=== PATIENT | male | born 1995 | race Caucasian/White ===

== ENCOUNTER → 2021-06-04 17:51 | Outpatient (BNVA) | payer OTHER, SELFPAY | PROVIDERS: Visit Provider Registered Nurse Neonatal Intensive Care | DX: Z20.2 Contact with and (suspected) exposure to infections with a predominantly sexual mode of transmission (principal) | CPT/HCPCS: 87491; 87591 ==

== ENCOUNTER 2021-10-01 20:35 | Emergency (ER) | payer SELFPAY ==
--- NOTE | 2021-10-01 20:37 | ECG_ITS ---
[facility] Test Date: 2021-10-01 Pat Name: Alfie Hutton Department: Room: Gender: Male Terminal Computer Operator: : 1995 Requested By: Ej Guerra Order Number: [id number] Mey MD: Salomón Redding M.D. Measurements Intervals Jay Rate: 106 P: 76 AK: 138 QRS: 82 QRSD: 98 T: 40 QT: 299 QTc: 398 Interpretive Statements SINUS TACHYCARDIA ABNORMAL RHYTHM ECG No previous ECG available for comparison Electronically Signed On 10-01-2021 22:48:25 CELL ATTENDANT by Salomón Redding M.D. [id number] f
[2021-10-01 20:40] VITALS: BP 147/87; PULSE 104; RESP 18; TEMP 36.2; O2SAT 98; BMI 25.0
--- NOTE | 2021-10-01 20:42 | W.ED.OVERDOS ---
HPI - Overdose General: Chief Complaint: Overdose Stated Complaint: OD Heroin Time Seen by Provider: 10/01/21 20:36 Source: other Mode of arrival: other Limitations: altered mental status History of Present Illness: HPI Narrative: 26-year-old male is here with friends after an accidental overdose. He is a known IV heroin user and friend states that he came in found him with an needle in his arm patient passed out. Patient here will respond to some questions but will not answer any questions his pupils are pinpoint and is slight hypoxia and decreased respirations. He has overdosed in the past on accident no intentional overdoses Review of Systems General: Reports: ROS unobtainable due to mental status PFSH ED PFSH: Social History Smoking and tobacco status: current every day smoker Physical Exam Const: COMMON NORMALS: healthy appearing; negative for patient oriented x3 EXAM LIMITATIONS: altered mental status HENMT: COMMON NORMALS: normocephalic and atraumatic HEAD & SCALP: normocephalic and atraumatic Eye: COMMON NORMALS: Equal, round and reactive pupils present and EOMs intact bilaterally PUPIL: Yes Equal, round and reactive pupils present Neck/C-Spine: COMMON NORMALS: full ROM and supple Chest: COMMONS NORMALS: normal inspection of the chest and normal palpation of entire chest wall Resp: COMMON NORMALS: normal respiratory effort, No retractions, No use of accessory muscles and clear to auscultation bilaterally AUSCULTATION: clear to auscultation bilaterally Cardio: COMMON NORMALS: regular rate, regular rhythm and No murmurs present (Cardio) RATE: regular rate RHYTHM: regular rhythm GI: COMMON NORMALS: Normal to inspection, nondistended, normoactive bowel sounds present, Soft to palpation, non-tender and no masses PALPATION: Yes Soft to palpation Extremity: COMMON NORMALS: normal to inspection and full ROM Neuro: COMMON NORMALS: negative for patient oriented x3 Psych: COMMON NORMALS: negative for mental status grossly normal Skin: COMMON NORMALS: no rashes or lesions noted and no wounds GENERAL SKIN EXAM: no rashes or lesions noted Course Vital Signs: Vital signs: Vital Signs Temperature 97.1 F L 10/01/21 20:40 Pulse Rate 104 H 10/01/21 20:40 Respiratory Rate 18 10/01/21 20:40 Blood Pressure 147/87 10/01/21 20:40 Pulse Oximetry 98 10/01/21 20:40 MDM - Overdose MDM Narrative: Medical decision making narrative: Patient presents here with overdose on fentanyl actually once he came to he states he was using fentanyl. Patient's been awake alert here 50 minutes able answer all my questions he states he does not want to stay for any lab draws he feels great I strongly recommended staying for at least an hour as that was a half-life of Narcan he refuses he does have medical decision-making capacity he understands the risks he did sign out AGAINST MEDICAL ADVICE. EKG Data^: EKG 1: Attestation: I personally reviewed and interpreted this EKG as follows: EKG interpretation date: 10/01/21 EKG interpretation time: 20:42 Interpretation: sinus tach hr [address] or t wave abnormalities qrs 98 qtc 361 Critical Care Time Critical Care Time: Critical Care Time: Yes Total Critical Care Time: 36 Attestation: The high probability of a clinically significant, sudden or life threatening deterioration of the patient's [] system(s) required my full and direct attention, intervention and personal management. The critical care time is as shown. This time is in addition to time spent performing any reported procedures but includes the following: [x] Data and vital sign review and interpretation [x] Patient assessment, examination and intervention [x] Documentation [x] Medication orders and management Discharge Plan Discharge Patient Disposition: Left Against Medical Advice Clinical Impression: Drug overdose Condition: Stable Prescriptions: No Action azithromycin 1 gram packet 1 g PO ONCE Qty: 1 RF: 0 Discharge Diet: Advance as tolerated Discharge Activity: Resume usual activity Coding Level of Care Code ED Prepress Specialist for Yadira Hayward
[2021-10-01] MEDS: naloxone 0.4 mg/ml SDV IVP (20:50)
[2021-10-01] MEDS: naloxone 0.4 mg/ml SDV 1 MG IVP (21:00)
[2021-10-01 21:38] LABS: Basophils # 0.1 10^3/uL (0.0-0.1); Basophils % 0.9 %; Eosinophils # 0.3 10^3/uL (0.0-0.8); Eosinophils % 2.5 %; Hematocrit 45.2 % (42.0-52.0); Hemoglobin 14.8 g/dL (11.7-16.6); Lymphocytes # 3.7 10^3/uL (0.8-4.8); Lymphocytes % 28.5 %; Mean Corpuscular HGB Conc 32.7 g/dL (30.0-36.0); Mean Corpuscular Hemoglobin 30.3 pg (28.0-34.0); Mean Corpuscular Volume 92.4 fl (80-94); Mean Platelet Volume 10.7 fL (7.4-10.4); Monocytes # 1.1 10^3/uL (0.2-0.9); Monocytes % 8.6 %; Neutrophils # 7.64 10^3/uL (1.8-7.7); Neutrophils % 59.3 %; Nucleated Red Blood Cells % 0 %; Platelet Count 292 10^3/cmm (130-400); Red Blood Count 4.89 10^6/uL (4.1-5.3); White Blood Count 12.9 10^3/uL (4.0-10.0)
--- NOTE | 2021-10-02 00:44 | PC.NURSE ---
after 0.4mg of naloxone adm via IV, pt began to awaken. vo obtained from MD to hold on additional naloxone adm since pt is able to answer questions appropriatley. Pt requesting to see his mother, who brought him to the ED. After mother entered room, pt stating he wants to leave, is willing to sign AMA form. After MD spoke with pt, pt still requesting to leave and still sign AMA form. PT verbalized risks and benefits of leaving AMA. Pt signed form, IV pulled. notified. Pt escorted out of dept without further incident
== END 2021-10-01 21:00 | disposition left against medical advice (07) ==
PROVIDERS: Emergency Provider Emergency Medicine
DX: T40.411A Poisoning by fentanyl or fentanyl analogs, accidental (unintentional), initial encounter (principal); Z53.21 Procedure and treatment not carried out due to patient leaving prior to being seen by health care provider; F17.210 Nicotine dependence, cigarettes, uncomplicated
CPT/HCPCS: 80053; 80307; 85025; 93005; 96374; 96376; 99283; J2310

== ENCOUNTER 2022-08-11 10:42 | Emergency (ER) | payer MEDICAID, SELFPAY ==
--- NOTE | 2022-08-11 10:50 | ECG_ITS ---
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 Measurements Intervals [place] Rate: 109 P: 83 WV: 141 QRS: 88 QRSD: 102 T: 67 QT: 303 QTc: 409 Interpretive Statements SINUS TACHYCARDIA Compared to ECG 10/01/2021 20:42:09 No significant changes Electronically Signed On 08-11-2022 12:17:20 CDT by Gayla Steele M.D. [id number] f
[2022-08-11 10:52] VITALS: BP 109/74; PULSE 119; RESP 19; TEMP 37; O2SAT 98; BMI 21.7
--- NOTE | 2022-08-11 11:04 | XR_ITS ---
WS: [id number] Exam: XR chest 2V* [id number] Date/Time of Exam: 08/11/2022 11:06 AM Reason For Exam: dyspnea Findings: The lungs are clear and fully expanded. Costophrenic angles are sharp. No infiltrates. Bronchovascula r relief appears normal. Cardiac silhouette is unremarkable. Bony elements are intact. XR/XR chest 2V* [id number] IMPRESSION: Unremarkable chest radiograph.
--- NOTE | 2022-08-11 11:08 | ED_ITS ---
HPI - General Adult General: Chief complaint: Chest Pain Stated complaint: SOB, chest pain Time Seen by Provider: 08/11/22 11:04 History of Present Illness: CC: Chest Pain HPI: This is a [27]yo patient hx of IV meth use presenting to the ED complaining of acute sudden onset intermittent sharp chest pain and productive cough for 1 week. Patient tells me that the chest pain is worse with inspiration improves with sitting forward. No associated with shortness of breath, chest pain or dyspnea on exertion. Pain is not tearing in nature and does not radiate to the back. Pain not associated with vomiting or PO intake. Denies any recent sympathomimetic drug use. Patient denies any cough. Denies palpitations, dysphagia, diaphoresis, radiation of pain to bilateral arms, jaw. Denies F/N/V/D. Patient denies any recent immobility, surgery, unilateral leg swelling, or prior PE. Patient denies any orthopnea. Onset: 4 days ago Duration: ongoing for the last 4 days Location: home Severity: moderate Associated symptoms: Reports chest pain; Deny dyspnea, nausea, rash, palpitations or vomiting Review of Systems Const: Denies: fever(s) or chills Eyes: Denies: change in vision ENMT: Reports: other; Denies: mouth pain Card: Reports: chest pain; Denies: palpitations Resp: Reports: productive cough; Denies: dyspnea or non-productive cough GI: Denies: abdominal pain, nausea, vomiting or diarrhea : Denies: dysuria Musc: Denies: extremity pain Skin/Breast: Denies: rash or new lesions Neuro: Denies: weakness in extremities Psych: Reports: other (Normal mood) Juaquin/Lymph: Denies: easy bruising PFS ED PFSH: Medical History No pertinent past medical history Social History Smoking and tobacco status: current every day smoker Alcohol intake: never Substance/Drug Use: current Physical Exam Const: COMMON NORMALS: alert HENMT: COMMON NORMALS: atraumatic HEAD & SCALP: atraumatic MOUTH: moist mucous membranes not abnormal Eye: COMMON NORMALS: EOMs intact bilaterally and conjunctivae normal CONJUNCTIVA: Yes conjunctivae normal Neck/C-Spine: COMMON NORMALS: full ROM and supple Resp: COMMON NORMALS: normal respiratory effort and clear to auscultation bilaterally AUSCULTATION: clear to auscultation bilaterally Cardio: COMMON NORMALS: regular rate RATE: regular rate GI: COMMON NORMALS: Soft to palpation and non-tender PALPATION: Yes Soft to palpation OTHER: No focal TTP. NO guarding rebound, guarding, rigidity. No CVA tenderness to percussion. Neg Tripp/Neg McBurney's point tenderness, no suprabupic tenderness to palpation. Extremity: COMMON NORMALS: full ROM Neuro: SENSORIUM/ORIENTATION: Yes alert MOTOR EXAM: No Abnormal motor strength present and Other motor observations present (no focal motor deficits) Psych: COMMON NORMALS: speech normal SPEECH: Yes normal speech MOOD & AFFECT: Yes euthymic mood Skin: OTHER: +L arm track sagastume Course Vital Signs: Vital signs: Vital Signs Temperature 98.6 F 08/11/22 10:52 Pulse Rate 95 08/11/22 12:23 Respiratory Rate 18 08/11/22 12:23 Blood Pressure 123/65 08/11/22 12:23 Pulse Oximetry 95 08/11/22 12:23 Oxygen Delivery Me thod 08/11/22 12:23 MDM - General Adult Medical Decision Making [27]yo patient w/ hx of IV meth use presenting to the ED with evaluation of new onset sharp chest pain lasting for 1 week associated with cough. HDS, pulse 2+ radially bilaterally, no signs of fluid overload, AAOx3, neuro exam intact. Given History and Exam today I have no suspicion for ACS, Pneumothorax, Pneumon ia, Pulmonary Embolus, Tamponade, Aortic Dissection or other emergent problems as a cause for this presentation. In triage, patient was noted to be tachycardic. Patient's HR improved without any intervention in the ED. Workup: ECG, CXR, CBC, BMP, Troponin, Dimer, XR chest Interventions: NS, tylenol Findings: ECG: No overt evidence of STEMI, hyperacute T waves, localizable STD or T wave inversions. No evidence of Brugada?s sign, delta wave, epsilon wave, significantly prolonged QTc, or malignant arrhythmia. No Q waves. Other Labs unremarkable for emergent problems. CXR: Without PTX, PNA, or widened mediastinum Last Stress Test: never Last Heart Catheterization: never HEART Score: 0 Dimer wnl [12:45pm] On reassessment, the patient is HDS, no complaints of persistent chest pain in the ED after evaluation. ECG is non-ischemic. Workup today is unremarkable. Doubt ACS/PE or other emergent causes of chest pain. Doubt ACS/PE or other emergent causes of chest pain. No suspicion for aortic dissection given no widened mediastinum, 2+ upper extremity pulses, or tearing pain. No suspicion for PE given no pleuritic chest pain, recent immobilization or surgery hemoptysis, or other VTE risk factors. EKG is non-ischemic. XR normal. Rx: Tylenol PRN pain Disposition: Discharge. Strict return precautions discussed with the patient with full understanding. Advised patient to follow up promptly with a primary care provider in 24-48 hrs if the patient has persistent symptoms. Given return instructions for any crushing/tearing chest pain, focal weakness, syncope or any new or concerning issues. Lab Data : 08/11/22 12:00 08/11/22 12:00 Radiology Impressions Chest X-Ray 08/11/22 11:04 IMPRESSION: Unremarkable chest radiograph. Laboratory Results WBC 14.3 10^3/uL (4.0-10.0) H 08/11/22 12:00 RBC 5.14 10^6/uL (4.1-5.3) 08/11/22 12:00 Hgb 14.9 g/dL (11.7-16.6) 08/11/22 12:00 Hct 46.7 % (42.0-52.0) 08/11/22 12:00 MCV 90.9 fl (80-94) 08/11/22 12:00 MCH 29.0 pg (28.0-34.0) 08/11/22 12:00 MCHC 31.9 g/dL (30.0-36.0) 08/11/22 12:00 RDW 12.9 % (12.1-15.1) 08/11/22 12:00 Plt Count 208 10^3/cmm (130-400) 08/11/22 12:00 MPV 11.4 fL (7.4-10.4) H 08/11/22 12:00 Neut % (Auto) 79.8 % 08/11/22 12:00 Lymph % (Auto) 11.6 % 08/11/22 12:00 Bracken % (Auto) 6.6 % 08/11/22 12:00 Eos % (Auto) 1.0 % 08/11/22 12:00 Baso % (Auto) 0.4 % 08/11/22 12:00 Neut # (Auto) 11.45 10^3/uL (1.8-7.7) H 08/11/22 12:00 Lymph # (Auto) 1.7 10^3/uL (0.8-4.8) 08/11/22 12:00 Bracken # (Auto) 0.9 10^3/uL (0.2-0.9) 08/11/22 12:00 Eos # (Auto) 0.1 10^3/uL (0.0-0.8) 08/11/22 12:00 Baso # (Auto) 0.1 10^3/uL (0.0-0.1) 08/11/22 12:00 Nucleated RBC % (auto) 0 % 08/11/22 12:00 Nucleated RBCs # 0.0 /100WBC 08/11/22 12:00 D-Dimer 0.38 ug/mIFEU (0-0.59) 08/11/22 12:00 Sodium 137 mmol/L (136-145) 08/11/22 12:00 Potassium 4.0 mmol/L (3.5-5.1) 08/11/22 12:00 Chloride 100 mmol/L (98-107) 08/11/22 12:00 Carbon Dioxide 28 mmol/L (22-29) 08/11/22 12:00 Anion Gap 13.0 (5-19) 08/11/22 12:00 BUN 11 mg/dL (6-20) 08/11/22 12:00 Creatinine 0.8 mg/dL (0.7-1.2) 08/11/22 12:00 GFR Calculation 116.9 mL/min (90-130) 08/11/22 12:00 Glucose 100 mg/dL (65-115) 08/11/22 12:00 Calculated Osmolality 283 mOsm/kg (285-295) L 08/11/22 12:00 Calcium 9.5 mg/dL (8.5-10.5) 08/11/22 12:00 Troponin T Gen 5 ng/L 6 ng/L (0-15) 08/11/22 12:00 Influenza Type A Ag Negative (Negative) 08/11/22 Unknown Influenza Type B Ag Negative (Negative) 08/11/22 Unknown Imaging Data Other Imaging: Radiologist's impression: [address] [address] XRay Report Signed Patient: Alfie Hutton Unit #: [id number] : 1995 Age/Sex: 27 / M ADM Date: 08/11/22 Loc: ER Room/Bed: Attending Dr: Ordering Provider/Ordering MD: Seble Sutton MD Date of Service: 08/11/22 Procedure(s): XR chest 2V* [id number] Accession Number(s): [id number] Report Number: [id number] WS: [id number] Exam: XR chest 2V* [id number] Date/Time of Exam: 08/11/2022 11:06 AM Reason For Exam: dyspnea Findings: The lungs are clear and fully expanded. Costophrenic angles are sharp. No infiltrates. Bronchovascular relief appears normal. Cardiac silhouette is unremarkable. Bony elements are intact. ? XR/XR chest 2V* [id number] IMPRESSION: Unremarkable chest radiograph. ? ? Dictated By: Vahid Hatch DO Signed By: Vahid Hatch DO Signed Date/Time: 08/11/227 DD/ 1116 Discharge Plan Discharge Patient Disposition: Home Clinical Impression: Chest pain, Cough Condition: Stable Prescriptions: New acetaminophen 500 mg tablet 500 mg PO Q6H PRN (Reason: pain) 5 Days Qty: 20 0RF No Action azithromycin 1 gram packet 1 g PO ONCE Qty: 1 0RF Discharge Orders: Discharge ED (Routine); Ordered 08/11/22 Ordered By: Seble Sutton Patient Instructions: Chest Pain (ED), Acute Cough (ED) Activity Restrictions/Additional Instructions: Come back to the emergency room if your chest pain worsens, have any fever or chills, worsening shortness of breath, worsening exertional lightheadedness, or any new or concerning complaints. Coding Level of Care Code ED Oil Well Fishing Tool Operator for Chg Fwd Exam Comprehensive
[2022-08-11] MEDS: sodium chloride 0.9% 1,000 ML 999 ML IV (11:43)
[2022-08-11] MEDS: acetaminophen 500 mg Tablet PO (11:43)
[2022-08-11 12:15] LABS: Basophils # 0.1 10^3/uL (0.0-0.1); Basophils % 0.4 %; Eosinophils # 0.1 10^3/uL (0.0-0.8); Hematocrit 46.7 % (42.0-52.0); Hemoglobin 14.9 g/dL (11.7-16.6); Lymphocytes # 1.7 10^3/uL (0.8-4.8); Lymphocytes % 11.6 %; Mean Corpuscular HGB Conc 31.9 g/dL (30.0-36.0); Mean Corpuscular Volume 90.9 fl (80-94); Mean Platelet Volume 11.4 fL (7.4-10.4); Monocytes # 0.9 10^3/uL (0.2-0.9); Monocytes % 6.6 %; Neutrophils # 11.45 10^3/uL (1.8-7.7); Neutrophils % 79.8 %; Nucleated Red Blood Cells % 0 %; Platelet Count 208 10^3/cmm (130-400); Red Blood Count 5.14 10^6/uL (4.1-5.3); Red Cell Distribution Width 12.9 % (12.1-15.1); White Blood Count 14.3 10^3/uL (4.0-10.0)
[2022-08-11 12:20] LABS: Influenza A by IFA Negative (Negative); Influenza B by IFA Negative (Negative)
[2022-08-11 12:23] VITALS: BP 123/65; PULSE 95; RESP 18; O2SAT 95
[2022-08-11 12:23] LABS: D Dimer 0.38 ug/mIFEU (0-0.59)
[2022-08-11 12:27] LABS: Troponin T (5th) Once 6 ng/L (0-15)
[2022-08-11 12:30] LABS: Blood Urea Nitrogen 11 mg/dL (6-20); Calcium 9.5 mg/dL (8.5-10.5); Carbon Dioxide 28 mmol/L (22-29); Chloride 100 mmol/L (98-107); Creatinine Clr Calc Pharmacy 149.6052; Glomerular Filtration Rate 116.9 mL/min (90-130); Glucose 100 mg/dL (65-115); Osmolality Calculated 283 mOsm/kg (285-295); Sodium 137 mmol/L (136-145)
[2022-08-11 13:00] VITALS: BP 113/64; PULSE 73; RESP 18; O2SAT 97
[2022-08-11 13:44] LABS: Adenovirus Not Detected (NOT DETECT); Chlamydia Pneumoniae Not Detected (NOT DETECT); Coronavirus 229E,HKU1,NL63,OC4 Not Detected (NOT DETECT); Human Metapneumovirus Not Detected (NOT DETECT); Human Rhinovirus/Enterovirus Not Detected (NOT DETECT); Influenza A Not Detected (NOT DETECT); Influenza A H1 Not Detected (NOT DETECT); Influenza A H1-2009 Not Detected (NOT DETECT); Influenza A H3 Not Detected (NOT DETECT); Influenza B Not Detected (NOT DETECT); Mycoplasma Pneumoniae Not Detected (NOT DETECT); Parainfluenza Virus Type 1 Not Detected (NOT DETECT); Parainfluenza Virus Type 2 Not Detected (NOT DETECT); Parainfluenza Virus Type 3 Not Detected (NOT DETECT); Parainfluenza Virus Type 4 Not Detected (NOT DETECT); Respiratory Syncytial Virus A Not Detected (NOT DETECT); Respiratory Syncytial Virus B Not Detected (NOT DETECT); SARS-COV-2 Not Detected (NOT DETECT)
== END 2022-08-11 13:02 | disposition home or self-care (01) ==
PROVIDERS: Emergency Provider Emergency Medicine
DX: R07.9 Chest pain, unspecified (principal); R05.9 Cough, unspecified; F17.210 Nicotine dependence, cigarettes, uncomplicated; Z20.822 Contact with and (suspected) exposure to COVID-19
CPT/HCPCS: 71046; 80048; 84484; 85025; 85378; 87635; 87804; 93005; 96360; 99285; J7030

== ENCOUNTER 2023-02-28 13:22 | Emergency (ER) | payer MEDICAID, SELFPAY ==
[2023-02-28 13:29] VITALS: BP 117/74; PULSE 98; RESP 22; TEMP 36.6; O2SAT 99; BMI 20.3
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
[2023-02-28] MEDS: iohexol 350 mg/mL 500 mL Btl (per mL) IV (14:08)
[2023-02-28 14:21] LABS: Basophils % 0.5 %; Eosinophils # 0.2 10^3/uL (0.0-0.8); Hematocrit 43.7 % (42.0-52.0); Hemoglobin 14.1 g/dL (11.7-16.6); Lymphocytes # 2.7 10^3/uL (0.8-4.8); Lymphocytes % 37.2 %; Mean Corpuscular HGB Conc 32.3 g/dL (30.0-36.0); Mean Corpuscular Hemoglobin 29.7 pg (28.0-34.0); Mean Corpuscular Volume 92.2 fl (80-94); Mean Platelet Volume 11.2 fL (7.4-10.4); Monocytes # 0.6 10^3/uL (0.2-0.9); Monocytes % 8.7 %; Neutrophils # 3.68 10^3/uL (1.8-7.7); Neutrophils % 50.3 %; Nucleated Red Blood Cells % 0 %; Platelet Count 201 10^3/cmm (130-400); Red Blood Count 4.74 10^6/uL (4.1-5.3); Red Cell Distribution Width 12.5 % (12.1-15.1); White Blood Count 7.3 10^3/uL (4.0-10.0)
[2023-02-28] MEDS: tetanus-dipt-pertussis 0.5 mL SDV IM (14:24)
[2023-02-28 14:36] VITALS: RESP 14; O2SAT 100
[2023-02-28] MEDS: fentaNYL 50 mcg/mL INJ 2mL IVP ×2 (14:36→15:23)
[2023-02-28 14:40] LABS: Anion Gap 11.1 (5-19); Blood Urea Nitrogen 13 mg/dL (6-20); Calcium 8.8 mg/dL (8.5-10.5); Carbon Dioxide 28 mmol/L (22-29); Chloride 102 mmol/L (98-107); Glomerular Filtration Rate 90.3 mL/min (90-130); Glucose 127 mg/dL (65-115); Osmolality Calculated 286 mOsm/kg (285-295); Potassium 4.1 mmol/L (3.5-5.1); Sodium 137 mmol/L (136-145)
[2023-02-28 15:15] VITALS: BP 122/71; PULSE 92; RESP 16; O2SAT 100
[2023-02-28 15:23] VITALS: RESP 14; O2SAT 100
[2023-02-28 16:49] VITALS: RESP 15
[2023-02-28] MEDS: oxyCODONE 5 mg IR Tab/Cap PO (16:49)
[2023-02-28] MEDS: bacitracin ointment Pkt 1 EACH TOPICAL (16:49)
[2023-02-28 16:50] VITALS: BP 140/86; PULSE 81; RESP 13; O2SAT 100
--- NOTE | 2023-03-04 13:50 | DCPLANNER ---
cnc manager called patient due to no primary care physician - no answer at this time.
== END 2023-02-28 16:47 | disposition home or self-care (01) ==
PROVIDERS: Emergency Provider Emergency Medicine
DX: S27.321A Contusion of lung, unilateral, initial encounter (principal); S50.311A Abrasion of right elbow, initial encounter; S70.311A Abrasion, right thigh, initial encounter; S30.811A Abrasion of abdominal wall, initial encounter; S20.311A Abrasion of right front wall of thorax, initial encounter; F17.210 Nicotine dependence, cigarettes, uncomplicated; V28.49XA Other motorcycle driver injured in noncollision transport accident in traffic accident, initial encounter; Z23 Encounter for immunization
CPT/HCPCS: 70450; 71260; 72125; 73060; 73090; 73130; 73552; 74177; 80048; 85025; 90471; 90715; 96374; 99285; J3010; Q9967

== ENCOUNTER 2025-01-31 00:05 | Emergency (ER) | payer MEDICAID, SELFPAY ==
[2025-01-31] VITALS (8 sets, daily range): BP systolic 95–136; BP diastolic 45–87; PULSE 70–91; RESP 18; TEMP 36.3; O2SAT 90–100; BMI 25.7
[2025-01-31 00:24] LABS: Basophils % 0.2 %; Eosinophils # 0.1 10^3/uL (0.0-0.8); Hematocrit 40.3 % (37-53); Lymphocytes # 2.4 10^3/uL (0.8-4.8); Lymphocytes % 27.2 %; Mean Corpuscular HGB Conc 34.7 g/dL (30-55); Mean Corpuscular Hemoglobin 30.1 pg (27-33); Mean Corpuscular Volume 86.7 fl (82-101); Mean Platelet Volume 11.8 fL (7.4-10.4); Monocytes # 0.7 10^3/uL (0.2-0.9); Monocytes % 7.8 %; Neutrophils # 5.48 10^3/uL (1.8-7.7); Neutrophils % 63.6 %; Nucleated Red Blood Cells % 0 %; Platelet Count 208 10^3/cmm (157-399); Red Blood Count 4.65 10^6/uL (3.85-5.65); Red Cell Distribution Width 12.4 % (12.1-15.1); White Blood Count 8.63 10^3/uL (3.29-11.43)
[2025-01-31] MEDS: ondansetron 2 mg/ML SDV 2 mL 8 MG IVP ×2 (00:25→00:44)
[2025-01-31] MEDS: sodium chloride 0.9% 1,000 ML 999 ML IV (00:25)
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
[2025-01-31 00:55] LABS: Alanine Aminotransferase 22 U/L (0-41); Albumin Level 4.5 g/dL (3.5-5.2); Alcohol Level 184 mg/dL (0-10); Alkaline Phosphatase 75 U/L (40-130); Anion Gap 19.2 (5-19); Aspartate Amino Transferase 17 U/L (0-40); Blood Urea Nitrogen 8 mg/dL (6-20); Calcium 9.1 mg/dL (8.5-10.5); Carbon Dioxide 23 mmol/L (22-29); Chloride 104 mmol/L (98-107); Creatinine Clr Calc Pharmacy 126.0516; Globulin 2.5 g/dL (1.3-4.6); Glucose 103 mg/dL (65-115); Osmolality Calculated 295 mOsm/kg (285-295); Potassium 3.2 mmol/L (3.5-5.1); Sodium 143 mmol/L (136-145); Thyroid Stimulating Hormone 0.69 uIU/mL (0.27-4.20); Total Bilirubin 0.3 mg/dL (0.15-1.2)
[2025-01-31 01:04] LABS: Acetaminophen < 5.0 ug/mL (10-30); Salicylate < 0.3 mg/dL (3-10)
[2025-01-31 04:06] LABS: Alcohol Level 113 mg/dL (0-10)
== END 2025-01-31 05:00 | disposition home or self-care (01) ==
PROVIDERS: Emergency Provider Emergency Medicine
DX: F10.129 Alcohol abuse with intoxication, unspecified (principal); Y90.5 Blood alcohol level of 100-119 mg/100 ml; Z72.0 Tobacco use
CPT/HCPCS: 80053; 80307; 84443; 85025; 96361; 96374; 96376; 99284; J2405; J7030